=== PATIENT | female | born 1995 ===

== ENCOUNTER 2018-07-24 09:37 | Emergency (ER) | payer BC ==
[2018-07-24 09:46] VITALS: BMI 35.9
[2018-07-24] MEDS ORDERED: Albuterol-Ipratrop 3 mg / 0.5 (3 ml) UD INH STA (10:17)
[2018-07-24] MEDS ORDERED: Albuterol-Ipratrop 3 mg / 0.5 (3 ml) UD IH STA (10:17)
--- NOTE | 2018-07-24 10:23 | ED PDOC ---
History of Present Illness History of Present Illness: 23 y/o female with no significant PMHx presents to the ED for evaluation of cough on and off for the past couple of weeks. Patient reports of cough is phlegm productive and associated with chest tightness, sore throat and nasal congestion. Patient notes pain worsened today making her very short of breath thus prompting today's visit. Patient denies taking any medications for symptom relief, similar symptoms in the past, abdominal pain, vision, headache, calf pain and recent travel. Of note, patient reports of having frequent colds throughout the year. PMD: no provider HPI: Influenza Time Seen by Provider: 07/24/18 09:51 Chief Complaint: Cough, Cold, Congestion Chief Complaint (Provider): Cough, Cold, Congestion History Per: Patient Exam Limitations: no limitations Have you had recent travel within the past 21 days to any of: No Onset/Duration Of Symptoms: Days Symptoms include: sore throat, cough, nasal congestion, chest pain (TIGHTNESS) Past Medical History Reviewed: Historical Data, Nursing Documentation, Vital Signs Vital Signs: Last Vital Signs Temp 98.1 F 07/24/18 09:44 Pulse 92 H 07/24/18 09:44 Resp 18 07/24/18 09:44 BP 143/91 H 07/24/18 09:44 Pulse Ox 98 07/24/18 09:44 - Medical History PMH: No Chronic Diseases - Surgical History Surgical History: No Surg Hx - Family History Family History: States: Unknown Family Hx - Home Medications Home Medications: Ambulatory Orders Medication Instructions Recorded Albuterol Sulfate [Proair Hfa] 0.09 mg IH Q6H PRN #2 inh 07/24/18 Benzonatate [Tessalon Perles] 100 mg PO BID PRN 5 Days sgl 07/24/18 predniSONE [predniSONE Tab] 20 mg PO BID 5 Days tab 07/24/18 - Allergies Allergies/Adverse Reactions: Allergies Allergy/AdvReac Type Severity Reaction Status Date / Time No Known Allergies Allergy Verified 07/24/18 09:47 Review of Systems ROS Statement: Except As Marked, All Systems Reviewed And Found Negative Eyes: Negative for: Vision Change ENT: Positive for: Nose Congestion, Throat Pain Cardiovascular: Positive for: Chest Pain (TIGHTNESS) Respiratory: Positive for: Cough (PHLEGM PRODUCTIVE), Sputum Gastrointestinal: Negative for: Abdominal Pain Musculoskeletal: Negative for: Leg Pain Neurological: Negative for: Headache Physical Exam - Reviewed Nursing Documentation Reviewed: Yes Vital Signs Reviewed: Yes - Physical Exam Appears: Positive for: No Acute Distress Head Exam: Positive for: ATRAUMATIC Skin: Positive for: Normal Color, Warm, Dry Eye Exam: Positive for: Normal appearance, EOMI, PERRL Neck: Positive for: Normal, Painless ROM, Supple Cardiovascular/Chest: Positive for: Regular Rate, Rhythm. Negative for: Murmur Respiratory: Positive for: Wheezing (Mild expiratory wheezing bilaterally). Negative for: Respiratory Distress Gastrointestinal/Abdominal: Positive for: Normal Exam, Soft. Negative for: Tenderness Back: Positive for: Normal Inspection. Negative for: L CVA Tenderness, R CVA Tenderness Extremity: Positive for: Normal ROM. Negative for: Tenderness, Pedal Edema, Deformity Neurological/Psych: Positive for: Awake, Alert, Oriented. Negative for: Motor/Sensory Deficits Medical Decision Making Medical Decision Making: Time: 101 Impression: Cough and Chest Tightness Plan: -- EKG -- ED Urine Dipstick -- CXR Two Views -- Duoneb 3mg/0.5mg 3 ml (UD) 3ml INH -- Duoneb 3mg/0.5mg 3 ml (UD) 3ml INH -- PredniSONE 60 mg PO -- Peak Flow Pre/Post Tx ____ Scribe Attestation: Documented by Carmelina Richardson, acting as a scribe Toro Middleton MD. Provider Scribe Attestation: All medical record entries made by the Scribe were at my direction and personally dictated by me. I have reviewed the chart and agree that the record accurately reflects my personal performance of the history, physical exam, medical decision making, and the department course for this patient. I have also personally directed, reviewed, and agree with the discharge instructions and disposition. - ECG ECG: Positive for: Interpreted By Me, Viewed By Me ECG Rhythm: Positive for: Normal QRS, Normal ST Segment, Sinus Rhythm O2 Sat by Pulse Oximetry: 98 Pulse Ox Interpretation: Normal - Radiology X-Ray: Interpreted by Me, Viewed By Me X-Ray Interpretation: No Acute Disease - Progress ED Course And Treament: 1208: Stable. AAOx3. Pain free. Tolerated po. Fu with pcp. Likely bronchitis. Disposition - Clinical Impression Clinical Impression: Bronchitis - Patient ED Disposition Is Patient to be Admitted: No Counseled Patient/Family Regarding: Studies Performed, Diagnosis, Need For Followup, Rx Given - Disposition Referrals: [facility] [Outside] - 07/27/18 Disposition: Routine/Home Disposition Time: 12:10 Condition: STABLE Additional Instructions: Return if not better in 3 days. Prescriptions: Albuterol Sulfate [Proair Hfa] 0.09 mg IH Q6H PRN #2 inh PRN Reason: Wheezing Benzonatate [Tessalon Perles] 100 mg PO BID PRN 5 Days sgl PRN Reason: Cough predniSONE [predniSONE Tab] 20 mg PO BID 5 Days tab Instructions: Acute Bronchitis Forms: [facility] (Turkish), [facility] ED School/Work Excuse
--- NOTE | 2018-07-24 11:47 | RAD ---
Date of service: 07/24/2018 HISTORY: Dyspnea COMPARISON: No prior. TECHNIQUE: Chest PA and lateral FINDINGS: LUNGS: No active pulmonary disease. PLEURA: No significant pleural effusion identified. No pneumothorax apparent. CARDIOVASCULAR: No aortic atherosclerotic calcification present. Normal cardiac size. No pulmonary vascular congestion. OSSEOUS STRUCTURES: Mild multilevel degenerative spondylosis of the thoracic spine VISUALIZED UPPER ABDOMEN: Normal. OTHER FINDINGS: None. IMPRESSION: No active disease.
[2018-07-24 12:49] VITALS: BP 138/84; PULSE 84; RESP 19; TEMP 98.7; O2SAT 99
--- NOTE | 2018-07-24 17:53 | CARD ---
APPROVED REPORT Date of service: 07/24/2018 EKG Measurement [id number] <Conclusion> Normal sinus rhythm Normal Electrocardiogram
== END 2018-07-24 12:48 | disposition home or self-care (01) ==
LOC: H.ER 09:37
DX: J40 Bronchitis, not specified as acute or chronic (principal)